=== PATIENT | male | born 1975 | race African-American/Black ===

== ENCOUNTER 2017-12-20 16:28 | Inpatient (IN) | payer MEDICAID ==
[2017-12-20] MEDS ORDERED: Sodium Chloride 0.9% 1,000 ML IV ONE (17:08)
[2017-12-20 17:49] LABS: % BASOPHILS 0.2 % (0.0-2.0); % EOSINOPHILS 1.7 % (0.0-5.0); % MONOCYTES 7.1 % (2.0-10.0); EOSINOPHILE ABSOLUTE 0.1 Th/cmm (0.1-0.4); HEMATOCRIT 37.7 % (41.0-60); HEMOGLOBIN 12.6 gm/dL (12-16); MEAN CELL VOLUME 89.2 fl (80-99); MEAN CORPUSCULAR HEMOGLOBIN 29.7 pg (26.0-30.0); MEAN CORPUSCULAR HGB CONC 33.3 pg (28.0-36.0); MONOCYTE ABSOLUTE 0.6 Th/cmm (0.3-1.0); NEUTROPHILE ABSOLUTE 5.2 Th/cmm (1.8-8.0); PLATELET COUNT 448 Th/cmm (150-400); RED BLOOD COUNT 4.23 Mil/cmm (4.30-5.70); RED CELL DISTRIBUTION WIDTH 17.6 % (11.5-20.0); WHITE BLOOD COUNT 7.9 Th/cmm (4.8-10.8)
[2017-12-20 18:01] LABS: INR 1.21 (0.5-1.4); PROTHROMBIN TIME (TEST) 12.7 SECONDS (9.5-11.5)
[2017-12-20 18:04] LABS: ALB/GLOB RATIO 1.2 (1.0-1.8); ALKALINE PHOSPHATASE 114 U/L (34-104); BILIRUBIN,TOTAL 0.2 mg/dL (0.3-1.0); BUN - UREA NITROGEN 10 mg/dL (7-25); CARBON DIOXIDE 22.7 mEq/L (21.0-31.0); CHLORIDE 101 mEq/L (98-107); CHOLESTEROL 194 mg/dL (<200); CREATININE - SERUM 0.6 mg/dL (0.7-1.3); CREATININE KINASE 141 U/L (30-223); GFR AFRICAN-AMERICAN > 60.0 ml/min (>90); GFR NON AFRICAN-AMERICAN > 60.0 ml/min; GLUCOSE 150 mg/dL (70-105); HDL -HIGH DENSITY LIPOPROTEIN 60 mg/dL (23-92); SGOT 13 U/L (13-39); SGPT/ALT 8 U/L (7-52); SODIUM SERUM 132 mEq/L (136-145); TOTAL PROTEIN,SERUM 7.3 gm/dL (6.0-8.3); TRIGLYCERIDES 86 mg/dL (<150)
[2017-12-20 18:17] LABS: POTASSIUM SERUM 2.7 mEq/L (3.5-5.1)
[2017-12-20] MEDS ORDERED: Potassium Chloride 20 mEq ER Tab PO ONE ×2 (18:19→18:43)
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
[2017-12-20] MEDS ORDERED: Multivitamin Inj 10 ML, Thiamine HCL 100 MG, Magnesium Sulfate 2 GM, Folic Acid 1 MG in... IV ONE ×2 (19:15→23:07)
[2017-12-20] MEDS ORDERED: Thiamine 100 mg/mL 2mL Vial ONE (19:46)
[2017-12-20] MEDS ORDERED: Magnesium Sulfate 1 gm/2 mL 2mL Vial IV ONE (19:46)
[2017-12-20] MEDS ORDERED: Multivitamin Inj 10 mL Vial IV ONE (19:47)
[2017-12-20 19:50] LABS: AMPHETAMINE URINE NEGATIVE (NEGATIVE); BARBITURATES URINE POSITIVE (NEGATIVE); BENZODIAZEPINES QUAL URINE NEGATIVE (NEGATIVE); CANNABINOID THC NEGATIVE (NEGATIVE); COCAINE METABOLITE QUAL URINE NEGATIVE (NEGATIVE); METHADONE URINE NEGATIVE (NEGATIVE); METHAMPHETAMINES QUAL URINE NEGATIVE (NEGATIVE); OPIATES (MORPHINE) QUAL. URINE NEGATIVE (NEGATIVE); PHENCYCLIDINE (PCP) URINE NEGATIVE (NEGATIVE); TRICYCLICS (TCA) QUAL. URINE NEGATIVE (NEGATIVE)
[2017-12-21] MEDS ORDERED: Thiamine 100 mg/mL 2mL Vial ONE (01:33)
[2017-12-21] MEDS ORDERED: Multivitamin Inj 10 mL Vial IV ONE (01:34)
[2017-12-21] MEDS ORDERED: Magnesium Sulfate 1 gm/2 mL 2mL Vial IV ONE (01:34)
[2017-12-21] MEDS ORDERED: Influenza Vaccine 0.5 mL Syr IM ONE (02:55)
[2017-12-21 02:58] VITALS: BP 103/58
--- NOTE | 2017-12-21 08:27 | Diagnostic Imaging Report ---
Head CT without intravenous contrast Indication: Trauma, altered level of consciousness Comparison: None Technique: Axial images were obtained from the vertex to the skull base without IV contrast. Coronal reconstructions were made. Total DLP: 736, CTDI37 FINDINGS: Images of the brain obtained on contrast demonstrate no evidence of an acute hemorrhage. There is slight prominence of the right-sided sulci in relation to the left. Mild white matter disease is noted. The ventricles and basal cisterns are patent. No mass effect or midline shift. No significant focal soft tissue swelling. No evidence of a skull fracture. IMPRESSION: No evidence of an acute intracranial hemorrhage. Slight asymmetric prominence of the right sulci in relation to the left. This may be due to asymmetric atrophy, however, The less likelihood to of occult edema on the left cerebral hemispheric cannot be excluded. Correlation old exams and helpful for comparison. Otherwise MRI would also provide additional detail and assessment.
--- NOTE | 2017-12-21 08:39 | Diagnostic Imaging Report ---
CT cervical spine without IV contrast HISTORY: Trauma COMPARISON: None Technique: Axial images were obtained from the skull base to the upper thoracic spine without IV contrast. Multiplanar reconstructions were made. Total DLP: 580, CTDI26.6 FINDINGS: Images of the cervical spine obtained without contrast demonstrate minimal chronic vertebral body loss of height of T1. No evidence of an acute fracture or subluxation. Multilevel degenerative changes are seen with partial osseous fusion of the C5-C7 vertebral bodies. Endplate irregularities are seen in multiple levels likely sequela of degenerative etiology. No prevertebral soft tissue swelling. Lung apices are clear. IMPRESSION: Minimal chronic vertebral body loss of height of T1. No evidence of acute fracture or subluxation Degenerative changes with partial vertebral body fusion of C5-C7. Areas of mild endplate irregularities are seen at multiple levels favoring degenerative etiologies. Infectious or inflammatory etiology is considered less likely, however, correlation is to be made with clinical history and old exams.
[2017-12-21 08:59] LABS: % BASOPHILS 0.1 % (0.0-2.0); % EOSINOPHILS 1.9 % (0.0-5.0); % LYMPHOCYTES 21.1 % (20.0-50.0); % MONOCYTES 6.5 % (2.0-10.0); % NEUTROPHILS 70.4 % (40.0-80.0); EOSINOPHILE ABSOLUTE 0.1 Th/cmm (0.1-0.4); HEMATOCRIT 38.4 % (41.0-60); HEMOGLOBIN 12.6 gm/dL (12-16); LYMPHOCYTE ABSOLUTE 1.4 Th/cmm (1.5-3.0); MEAN CELL VOLUME 90.1 fl (80-99); MEAN CORPUSCULAR HEMOGLOBIN 29.6 pg (26.0-30.0); MEAN CORPUSCULAR HGB CONC 32.8 pg (28.0-36.0); MEAN PLATELET VOLUME 6.2 fl; MONOCYTE ABSOLUTE 0.4 Th/cmm (0.3-1.0); NEUTROPHILE ABSOLUTE 4.7 Th/cmm (1.8-8.0); PLATELET COUNT 415 Th/cmm (150-400); RED BLOOD COUNT 4.26 Mil/cmm (4.30-5.70); RED CELL DISTRIBUTION WIDTH 18.4 % (11.5-20.0); WHITE BLOOD COUNT 6.6 Th/cmm (4.8-10.8)
[2017-12-21 09:06] LABS: ANION GAP 7.6 (7.0-16.0); BUN - UREA NITROGEN 6 mg/dL (7-25); CALCIUM SERUM 9.1 mg/dL (8.6-10.3); CARBON DIOXIDE 25.2 mEq/L (21.0-31.0); CHLORIDE 113 mEq/L (98-107); CREATININE - SERUM 0.6 mg/dL (0.7-1.3); GFR AFRICAN-AMERICAN > 60.0 ml/min (>90); GFR NON AFRICAN-AMERICAN > 60.0 ml/min; GLUCOSE 109 mg/dL (70-105); POTASSIUM SERUM 3.8 mEq/L (3.5-5.1); SODIUM SERUM 142 mEq/L (136-145)
--- NOTE | 2017-12-21 18:28 | History & Physical ---
ADMIT DATE: CHIEF COMPLAINT: Altered level of consciousness. HISTORY OF PRESENT ILLNESS: The patient is a 42-year-old male, homeless, alcoholic, presented to the Emergency Room with altered level of consciousness. Initial workup significant for alcohol intoxication, ethanol level is 330. The patient admitted to the telemetry on banana bag. The patient denies any chest pain, shortness of breath, nausea, vomiting, fever, chills, diarrhea. PAST MEDICAL HISTORY: Significant for ethanol dependency. PAST SURGICAL HISTORY: No recent surgery. ALLERGIES: None. MEDICATIONS: None. SOCIAL HISTORY: He is alcoholic, no smoking. FAMILY HISTORY: Noncontributory. REVIEW OF SYSTEMS: RENAL SYSTEM: No history of chronic renal disorder. CARDIOVASCULAR SYSTEM: No coronary artery disease. ENDOCRINE SYSTEM: No diabetes or thyroid problem. GASTROINTESTINAL SYSTEM: No upper or lower gastrointestinal bleed. NEUROLOGICAL SYSTEM: No seizure disorder. SKELETOMUSCULAR SYSTEM: No muscular dystrophy. HEMATOLOGIC SYSTEM: No bleeding tendencies. RESPIRATORY SYSTEM: No asthma. GENITOURINARY SYSTEM: No dysuria, hematuria. PHYSICAL EXAMINATION: GENERAL: He is awake, alert, oriented. VITAL SIGNS: Temperature 98.3, heart 96, blood pressure 118/75. HEENT: Normocephalic. Pupils reacting to light and accommodation. Sclerae clear. NECK: Supple. Negative for lymphadenopathy, JVD or bruit. CHEST: Bilateral normal. No rhonchi or wheezing. HEART: S1, S2 normal. No murmur or gallop rhythm. ABDOMEN: Soft, bowel sounds positive. EXTREMITIES: No edema. NEUROLOGIC: He is awake, alert, oriented. No focal motor deficits. LABORATORY DATA: White blood 6.6, hemoglobin 12.6, hematocrit 38.4, platelet 415. Sodium 142, potassium 3.8, BUN 6, creatinine 0.6, glucose 109. ASSESSMENT: 1. Acute alcohol intoxication. 2. Ethanol dependency. PLAN: The patient admitted to telemetry, started on banana bag, regular diet. Librium 25 p.o. every 6 hours for agitation. 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 JOB# [id number]
[2017-12-22] MEDS ORDERED: Influenza Vaccine 0.5 mL Syr IM ONE (09:00)
== END 2017-12-22 14:20 | disposition short-term general hospital (02) | DRG 775 ==
LOC: ER 16:28 → MSI 21:35 → TELE 23:12
PROVIDERS: ADMIT Family Medicine; ATTEND Family Medicine
DX: F10.229 Alcohol dependence with intoxication, unspecified (principal); E87.1 Hypo-osmolality and hyponatremia; E87.6 Hypokalemia; F17.210 Nicotine dependence, cigarettes, uncomplicated; F19.10 Other psychoactive substance abuse, uncomplicated; Z59.0 Homelessness
CPT/HCPCS: 36415-UA; 70450-TC; 72125-TC; 80048-TC; 80053-TC; 80061-TC; 80307; 80320-TC; 82550-TC; 83880-TC; 84484-TC; 85025-TC; 85610-TC; 93005; 94760; J3411; J3475; J7030; X6226; X6598

== ENCOUNTER 2017-12-22 18:32 | Emergency (ER) | payer MEDICAID ==
[2017-12-22] MEDS ORDERED: Sodium Chloride 0.9% 1,000 ML IV ONE (20:08)
--- NOTE | 2017-12-22 21:28 | ER Physician Documentation ---
DATE OF SERVICE: 12/22/2017 ADMITTING EMERGENCY ROOM EVALUATION AND TREATMENT Full code patient. A 42-year-old male patient. He came to the Emergency Room this afternoon and he just slogged around or whatever and however that happened. I was told that he was drunk and then he went away and he came back again. Outside is raining a lot and the patient was interviewed by me. His chief complaint is that he wants some food, he wants some drink and we will do that. HISTORY OF PRESENT ILLNESS: I was told that the patient is an alcoholic and he agreed that he does drink sometimes. He smokes 1 pack of cigarette a day and he believes that somebody killed his daughter in [facility]. When I said [place], he said no, [facility] there is no G on that, so that is what the history he can give. He denied any history of any injury, accidents. He is homeless. He does not know where to go. His main concern is right now to rest and eat some food and drink. Things I have told the nurse and they are kind enough to provide some good food or whatever maximum they can provide they will provide to the patient so he can be satisfied and his belly stays full. Review of systems could not be obtained because the patient is not in his own senses. He looks like he may be having alcohol in the blood, but we will check it out, he refuses, but we will get some lab workup done on him. The patient's past other history is nothing reliable that I can see. There were 2 reports that were seen on him, but then nothing pertinent is seen and nothing was written. On physical examination, the patient appears to be awake and he is very cold. There is a history of syncope on him that is written by the triage nurse. His vital signs are temperature 96.5, pulse of 68, respirations of 15, blood pressure 131/87, oxygen saturation is 98%, height of 5 feet 8 inches, weight is 175 pounds. Flu vaccination, this vaccination and all are not present. The patient has a history of some kind of seizure disorder probably the patient may not have money to drink alcohol and might go into some kind of seizure, it is very probability. On physical exam, he appears to be not in any very alert or competitive status. He seems to be slightly disoriented. He knows that he is somewhere protected in one of the hospital. Because he came this afternoon and he came back again. There is no gross evidence of any congestive heart failure or cardiac tamponade. Eyes appears to be somewhat having little nystagmus is noted. He cannot gaze very well that I can see. His hairs are not cut. He appears to be somewhat shabby. There is no edema over the legs. There are some old healed ulcers in the lower extremities. There is trace edema in the lower extremities. There is no evidence of any deep vein thrombophlebitis. Chest is clear. Trachea being central. Fairly good air entry in both lungs without any rales, rhonchi, or bronchial breathing. Abdomen is soft, benign and negative. Heart reveals normal heart sounds. Soft fourth heart sound. Second heart sound is physiologically split. Soft systolic murmur at the left sternal border. CLINICAL IMPRESSION: The patient had a history of syncope, history of alcoholic intake and homeless status, hungry and no place to go, so he came over here. We will get some blood done. I have instructed and advised the nurse to give him some food. 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 The most important he should able, able to walk around without any difficulty and he should be well fed. Thank you again. JOB# [id number]
--- NOTE | 2017-12-23 18:10 | ED Physician Chart ---
ED Chief Complaint/HPI - Patient Information Date Seen:: 12/23/17 Time Seen:: 17:00 Chief Complaint:: NO ACUTE MEDICAL COMPLAINT. History of Present Illness:: THIS PATIENT HAS BEEN HERE 3 TIMES IN PAST 24 HRS. HAS BEEN DRINKING. HAS NO MEDICAL COMPLAINTS. WITH WBC OF6.6. PT ORIENTED TO NAME AND THAT HE IS IN A HOSPITAL. DISORIENTED TO DAY AND MONTH. LABS FROM PRIOR VISITS SHOW NORMAL CBC, NA, K, CLORIDE, BICARB, NL ANION GAP, GLUCOSE OF 109. NEGATIVE TOX SCN, NEGATIVE TOX SCN. BLD ALCOHOL OF 330. Allergies:: Allergies Allergy/AdvReac Type Severity Reaction Status Date / Time No Known Allergies Allergy Verified 12/20/17 16:34 ED Review of Systems - Review of Systems General/Constitutional: No fever, No chills, Weakness, No diaphoresis, Other ( ROS IS QUESTIONABLE DUE TO PT'S MENTAL STATUS) Skin: No skin lesions, No bruising Head: Headache Eyes: No loss of vision, No diplopia ENT: No earache, No sore throat Neck: No neck pain, No swelling, Stiffness, No mass noted Cardio Vascular: Chest pain, No palpitations, edema Pulmonary: SOB, Cough, Other (COUGHEED UP RED BLOOD TODAY.) Psychiatric: No depression, No anxiety, No suicidal ideation Neurological: No focal symptoms, Weakness, Headache, No seizure, Confusion ED Past Medical History - Past Medical History Past Medical History: Other (UNRELIABLE DUE TO ALTERED MENTAL STATUS.) Social History: Smoker (1PPD. 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 Family Medical History - Family Member Mother History Unknown: Yes ED Physical Exam - Physical Examination General/Constitutional: Awake, Non-toxic appearing, Ambulatory Head: Atraumatic Eyes: Lids, conjuctiva normal, PERRL, EOMI Skin: No rash, No skin lesions, No ecchymosis, No lymphadenopathy ENMT: External ears, nose nl, Nasal exam nl, Lips, teeth, gums nl, Oropharynx nl , Tonsils nl Other ENMT comments:: GOOD ORAL HYDRATION. Neck: No JVD, No mass, No stridor Other Neck comments:: INCREASED MUSCLE TONE ED Septic Shock - . Is Septic Shock (SBP<90, OR Lactate>4 mmol\L) present?: No ED Discharge Plan - Patient Disposition Admit/Discharge/Transfer: PT DISCHARGED HOME Instructions: Alcohol Intoxication, [id number], Syncope, [id number] Accepting Physician: NO,PCP PER PATIENT [Other] not on staff,PCP is [Primary Care Provider] -
== END 2017-12-23 06:50 | disposition home or self-care (01) ==
LOC: ER 18:32
DX: R55 Syncope and collapse (principal); Z59.0 Homelessness
CPT/HCPCS: Z7502

== ENCOUNTER 2017-12-31 18:04 | Emergency (ER) | payer MEDICAID ==
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
== END 2017-12-31 20:15 | disposition home or self-care (01) ==
LOC: ER 18:04
DX: R53.1 Weakness (principal); Z59.0 Homelessness
CPT/HCPCS: Z7502

== ENCOUNTER 2018-01-08 20:35 | Emergency (ER) | payer MEDICAID ==
--- NOTE | 2018-01-09 06:03 | ER Physician Documentation ---
DATE OF SERVICE: 01/08/2018 EMERGENCY ROOM EVALUATION AND TREATMENT IDENTIFYING DATA: A 42-year-old male patient, , homeless patient. The patient is a full code patient. REASON FOR ADMISSION: The patient has been everyday coming here and today also when I came here at 7:00, the patient has been there for quite some time; for almost 6 hours and 33 minutes, the patient has been here and is sleeping here and when Dr. Salinas was here the patient was here and the patient, I believe, was seen or not, but I did interview and examine the patient. I have been examining the patient, I have been told that when the patient comes on the door, even if they come every single day the patient has to be seen, the patient has to be evaluated and then the patient can be discharged for home. So the patient's history, physical was done by me and the patient does not have any significant complaints. HISTORY OF PRESENT ILLNESS: Essentially benign and negative. PAST MEDICAL HISTORY: The patient is alcoholic, homeless, roams around and every other night or at least many nights he is around here, wanting food and wanting to sleep here and he comes in and sleeps here and he is being registered, I do not think this is the practice in many other hospitals, the homeless people are being admitted without any cause, just the patient walks and then we admit the patient and start examining the patient. In any event, the patient does not have any significant medical problems, no diabetes, no hypertension, no gout, no cholesterol problems. The patient does not know where he is, he is homeless, he is roaming around the streets here and somebody finds out, sometimes they call the ambulance and he is being brought by the ambulance, but most of the time he comes by himself, many times there was rain and he comes over here. Medical history is seizures. ALLERGIES: No known allergies. REVIEW OF SYSTEMS: Twelve-point review of systems is essentially found to be benign and negative. PHYSICAL EXAMINATION: The patient appears to be awake, alert and oriented and the patient has no complaints. Vital signs are normal. Conjunctivae are pink. Sclerae are white. HEENT: Jugular venous pressure is normal. The patient's chief complaint was alcoholic intoxication. The patient was interviewed at and the patient was found next to the liquor store on the streets, care ambulance [id number] brought the patient here. Temperature of the patient by the triage nurse was 97.2, pulse of 75, respirations 16, blood pressure 136/86, 98% saturation. General examination otherwise, the patient seems to be slightly dazed and the patient is aware that he is in the hospital. General physical examination shows the patient is awake and alert, not in any distress. General physical examination is benign and negative. Constitutional examination is negative. Chest is clear, without any rales, rhonchi, or bronchial wheezing. Abdomen is soft, benign and negative. Heart shows normal heart sounds. No fourth heart sound. Second heart sound is physiologically split. Third heart sound is absent. Liver, spleen not enlarged. No free fluid in the abdominal cavity and the patient does not have any acute medical condition. FINAL DIAGNOSES: Homeless situation. The patient has alcohol intoxication; as and when he can drink alcohol, he drinks alcohol and quite often he comes to our hospital Emergency Room and sleeps here overnight and in the morning the patient is being sent home and we have been asked by the triage nurse that we have to see the patient. I do not think this is a rule of our HIPAA or any violation that the patient comes in, we have to see the patient without any complaint by the patient. Final diagnoses, the patient has alcohol intoxication, homeless situation and the patient can be discharged for home. FINAL CONCLUSION: The patient can be discharged to home. This instruction has been given to Abe, our nurse here on the floor. JOB# [id number]
== END 2018-01-09 04:30 | disposition home or self-care (01) ==
LOC: ER 20:35
DX: F10.129 Alcohol abuse with intoxication, unspecified (principal); Z59.0 Homelessness
CPT/HCPCS: Z7502

== ENCOUNTER 2018-01-13 20:13 | Emergency (ER) | payer MEDICAID ==
--- NOTE | 2018-01-13 20:28 | ED Physician Chart ---
ED Chief Complaint/HPI - Patient Information Date Seen:: 01/13/18 Time Seen:: 20:26 Chief Complaint:: Seizure History of Present Illness:: 42 yo male was brought by ambulance to ER due to a seizure witnessed on street 30 min ago. At ER, the patient was awake and alert, without signs of seizures. He followed commands. He had history of alcohol dependence and was recently admitted for alcohol intoxication 3 weeks ago. He also had history of seizures and he had not been taking any anti-seizure medication. Allergies:: Allergies Allergy/AdvReac Type Severity Reaction Status Date / Time No Known Allergies Allergy Verified 12/31/17 18:16 ED Review of Systems - Review of Systems General/Constitutional: No fever Skin: No bruising Head: No headache Eyes: No pain ENT: No nasal drainage Neck: No neck pain Cardio Vascular: No chest pain Pulmonary: No SOB GI: No nausea, No vomiting Musculoskeletal: No bone or joint pain Neurological: No focal symptoms ED Past Medical History - Past Medical History Past Medical History: Seizures, Other (alcohol abuse and dependence) Social History: Alcohol Family Medical History - Family Member Mother History Unknown: Yes Ethnicity: ED Physical Exam - Physical Examination General/Constitutional: Awake, Alert Head: Atraumatic Eyes: PERRL, EOMI Skin: No ecchymosis ENMT: Nasal exam nl Neck: No nuchal rigidity Respiratory: Clear to Auscultation Cardio Vascular: RRR, No murmur, gallop, rubs, NL S1 S2 GI: No organomegaly : No discharge
[2018-01-13 21:14] LABS: % BASOPHILS 0.3 % (0.0-2.0); % EOSINOPHILS 1.2 % (0.0-5.0); % MONOCYTES 6.9 % (2.0-10.0); % NEUTROPHILS 66.6 % (40.0-80.0); EOSINOPHILE ABSOLUTE 0.1 Th/cmm (0.1-0.4); HEMATOCRIT 40.8 % (41.0-60); HEMOGLOBIN 13.3 gm/dL (12-16); LYMPHOCYTE ABSOLUTE 1.7 Th/cmm (1.5-3.0); MEAN CELL VOLUME 88.1 fl (80-99); MEAN CORPUSCULAR HEMOGLOBIN 28.6 pg (26.0-30.0); MEAN CORPUSCULAR HGB CONC 32.5 pg (28.0-36.0); MEAN PLATELET VOLUME 6.3 fl; MONOCYTE ABSOLUTE 0.5 Th/cmm (0.3-1.0); NEUTROPHILE ABSOLUTE 4.6 Th/cmm (1.8-8.0); PLATELET COUNT 375 Th/cmm (150-400); RED BLOOD COUNT 4.63 Mil/cmm (4.30-5.70); RED CELL DISTRIBUTION WIDTH 17.2 % (11.5-20.0); WHITE BLOOD COUNT 6.9 Th/cmm (4.8-10.8)
[2018-01-13 21:21] LABS: URINE MICROSCOPIC INDICATED? YES; URINE SOURCE RANDOM
[2018-01-13 21:23] LABS: URINE BILIRUBIN NEGATIVE (NEGATIVE); URINE BLOOD NEGATIVE (NEGATIVE); URINE GLUCOSE (UA) NEGATIVE (NEGATIVE); URINE KETONE NEGATIVE (NEGATIVE); URINE LEUKOCYTE ESTERASE NEGATIVE (NEGATIVE); URINE NITRATE NEGATIVE (NEGATIVE); URINE PROTEIN NEGATIVE (NEGATIVE); URINE UROBILINOGEN 0.2 E.U./dL (0.2 - 1.0)
[2018-01-13 21:31] LABS: ALB/GLOB RATIO 1.2 (1.0-1.8); ALBUMIN 4.1 gm/dL (4.2-5.5); ALKALINE PHOSPHATASE 108 U/L (34-104); ANION GAP 13.7 (7.0-16.0); BILIRUBIN,TOTAL 0.3 mg/dL (0.3-1.0); BUN - UREA NITROGEN 6 mg/dL (7-25); CALCIUM SERUM 9.1 mg/dL (8.6-10.3); CARBON DIOXIDE 23.8 mEq/L (21.0-31.0); CHLORIDE 104 mEq/L (98-107); CREATININE - SERUM 0.6 mg/dL (0.7-1.3); GFR AFRICAN-AMERICAN > 60.0 ml/min (>90); GFR NON AFRICAN-AMERICAN > 60.0 ml/min; GLUCOSE 88 mg/dL (70-105); POTASSIUM SERUM 3.5 mEq/L (3.5-5.1); SGOT 15 U/L (13-39); SGPT/ALT 8 U/L (7-52); SODIUM SERUM 138 mEq/L (136-145); TOTAL PROTEIN,SERUM 7.5 gm/dL (6.0-8.3)
[2018-01-13 21:32] LABS: URINE BACTERIA NONE SEEN /hpf (NONE SEEN); URINE CLARITY CLEAR (CLEAR); URINE COLOR YELLOW; URINE EPITHELIAL CELLS NONE SEEN /lpf (FEW); URINE RBC NONE SEEN /hpf (0-5); URINE WBC NONE SEEN /hpf (0-5)
[2018-01-13 21:35] LABS: AMPHETAMINE URINE NEGATIVE (NEGATIVE); BARBITURATES URINE NEGATIVE (NEGATIVE); BENZODIAZEPINES QUAL URINE NEGATIVE (NEGATIVE); CANNABINOID THC NEGATIVE (NEGATIVE); COCAINE METABOLITE QUAL URINE NEGATIVE (NEGATIVE); METHADONE URINE NEGATIVE (NEGATIVE); METHAMPHETAMINES QUAL URINE NEGATIVE (NEGATIVE); OPIATES (MORPHINE) QUAL. URINE NEGATIVE (NEGATIVE); PHENCYCLIDINE (PCP) URINE NEGATIVE (NEGATIVE); TRICYCLICS (TCA) QUAL. URINE NEGATIVE (NEGATIVE)
== END 2018-01-14 07:35 | disposition home or self-care (01) ==
LOC: ER 20:13
DX: R56.9 Unspecified convulsions (principal); Z59.0 Homelessness
CPT/HCPCS: 36415-UA; 80053-TC; 80307; 80320-TC; 81001-TC; 85025-TC; Z7502

== ENCOUNTER 2018-01-16 23:55 | Emergency (ER) | payer MEDICAID ==
[2018-01-17 01:56] LABS: % BASOPHILS 2.1 % (0.0-2.0); % EOSINOPHILS 1.5 % (0.0-5.0); % LYMPHOCYTES 26.7 % (20.0-50.0); % MONOCYTES 4.7 % (2.0-10.0); BASOPHILE ABSOLUTE 0.2 Th/cumm (0-0.2); EOSINOPHILE ABSOLUTE 0.1 Th/cmm (0.1-0.4); HEMATOCRIT 41.5 % (41.0-60); HEMOGLOBIN 13.5 gm/dL (12-16); MEAN CORPUSCULAR HEMOGLOBIN 28.6 pg (26.0-30.0); MEAN CORPUSCULAR HGB CONC 32.5 pg (28.0-36.0); MEAN PLATELET VOLUME 6.5 fl; MONOCYTE ABSOLUTE 0.4 Th/cmm (0.3-1.0); NEUTROPHILE ABSOLUTE 4.8 Th/cmm (1.8-8.0); PLATELET COUNT 360 Th/cmm (150-400); RED BLOOD COUNT 4.72 Mil/cmm (4.30-5.70); RED CELL DISTRIBUTION WIDTH 16.9 % (11.5-20.0); WHITE BLOOD COUNT 7.5 Th/cmm (4.8-10.8)
[2018-01-17 02:50] LABS: ALB/GLOB RATIO 1.1 (1.0-1.8); ALBUMIN 4.4 gm/dL (4.2-5.5); ALKALINE PHOSPHATASE 134 U/L (34-104); ANION GAP 13.8 (7.0-16.0); BILIRUBIN,TOTAL 0.3 mg/dL (0.3-1.0); BUN - UREA NITROGEN 7 mg/dL (7-25); CALCIUM SERUM 9.6 mg/dL (8.6-10.3); CARBON DIOXIDE 21.7 mEq/L (21.0-31.0); CHLORIDE 102 mEq/L (98-107); CREATININE - SERUM 0.6 mg/dL (0.7-1.3); GFR AFRICAN-AMERICAN > 60.0 ml/min (>90); GFR NON AFRICAN-AMERICAN > 60.0 ml/min; GLUCOSE 78 mg/dL (70-105); POTASSIUM SERUM 3.5 mEq/L (3.5-5.1); SGOT 17 U/L (13-39); SGPT/ALT 9 U/L (7-52); SODIUM SERUM 134 mEq/L (136-145); TOTAL PROTEIN,SERUM 8.3 gm/dL (6.0-8.3)
--- NOTE | 2018-01-17 07:43 | Diagnostic Imaging Report ---
Head CT without intravenous contrast Indication: Trauma Comparison: Head CT on 12/20/2017 Technique: Axial images were obtained from the vertex to the skull base without IV contrast. Coronal reconstructions were made. Total DLP: 677, [id number] FINDINGS: Images of the brain obtained without contrast demonstrate no evidence of an acute hemorrhage. Again seen is asymmetric size of the lateral ventricles, right larger than left, as seen on prior exam. No evidence of transependymal fluid migration. The walter-white matter differentiation is preserved. The ventricles and basal cisterns are patent. No mass effect or midline shift. Multiple small nodules and numerous calcifications are seen within the scalp. No evidence of the skull fracture or focal soft tissue swelling. There is mucosal thickening in the paranasal sinuses. IMPRESSION: No acute intracranial abnormality. Unchanged asymmetric size of the lateral ventricles, right larger than left. Correlation should be made with clinical findings and older exams. Consider follow-up surveillance if warranted. Multiple scalp nodules and small calcifications. Correlation should be made clinical findings.
--- NOTE | 2018-01-17 12:26 | ED Physician Chart ---
ED Chief Complaint/HPI - Patient Information Date Seen:: 01/17/18 Time Seen:: 00:30 Allergies:: Allergies Allergy/AdvReac Type Severity Reaction Status Date / Time No Known Allergies Allergy Verified 01/13/18 20:33 Vitals:: Vital Signs - 8 hr 01/17/18 01/17/18 04:56 06:45 Temp 98.2 F 98.1 F HR 72 69 RR 16 18 BP 133/88 135/84 O2 Sat % 97 98 Family Medical History - Family Member Mother History Unknown: Yes Ethnicity: ED Labs/Radiology/EKG Results - Lab Results Results: Laboratory Tests 01/17/18 01/17/18 01:49 01:49 WBC 7.5 RBC 4.72 Hgb 13.5 Hct 41.5 MCV 88.0 MCH 28.6 MCHC Differential 32.5 RDW 16.9 Plt Count 360 MPV 6.5 Neutrophils % 65.0 Lymphocytes % 26.7 Monocytes % 4.7 Eosinophils % 1.5 Basophils % 2.1 H Sodium 134 L Potassium 3.5 Chloride 102 Carbon Dioxide 21.7 Anion Gap 13.8 BUN 7 Creatinine 0.6 L Est GFR ( Amer) > 60.0 Est GFR (Non-Af Amer) > 60.0 BUN/Creatinine Ratio 11.7 Glucose 78 Calcium 9.6 Total Bilirubin 0.3 AST 17 ALT 9 Alkaline Phosphatase 134 H Total Protein 8.3 Albumin 4.4 Globulin 3.9 Albumin/Globulin Ratio 1.1 Ethyl Alcohol 42 H ED Septic Shock - <6hrs of presentation: Vital Signs: Vital Signs - 8 hr 01/17/18 01/17/18 04:56 06:45 Temp 98.2 F 98.1 F HR 72 69 RR 16 18 BP 133/88 135/84 O2 Sat % 97 98 ED Discharge Plan - Patient Disposition Admit/Discharge/Transfer: PT DISCHARGED HOME Instructions: Alcohol Intoxication, [id number]
== END 2018-01-17 06:50 | disposition home or self-care (01) ==
LOC: ER 23:55
DX: R51 Headache (principal); Z59.0 Homelessness
CPT/HCPCS: 36415-UA; 70450-TC; 80053-TC; 80320-TC; 85025-TC